=== PATIENT | female | born 1965 | race Caucasian/White ===

== ENCOUNTER 2017-01-16 16:06 | Emergency (ER) | payer OTHER ==
[2017-01-16 16:19] VITALS: BP 143/91
[2017-01-16] MEDS ORDERED: Tetan/Diph/Pertus SYR(Tdap)* 0.5 ML SYR(BOOSTRIX) use SYR IM ONE (18:45)
--- NOTE | 2017-01-16 21:07 | UC ---
Laceration HPI - HPI Summary HPI Summary: CHOPPING POTATOES AT 1130AM, LACERATED LEFT 5TH FINGER. TETANUS STATUS MORE THAN 10 YEARS AGO. - History Of Current Complaint Chief Complaint: UCLaceration Stated Complaint: FINGER LAC Time Seen by Provider: 01/16/17 18:45 Hx Obtained From: Patient Laceration Location: Finger Mechanism Of Injury: Sharp Trauma Onset/Duration: Lasting Hours Severity: Mild Pain Intensity: 0 Pain Scale Used: 0-10 Numeric Aggravating Factors: Movement Related History: Dominant Hand Right - Allergies/Home Medications Allergies/Adverse Reactions: Allergies Allergy/AdvReac Type Severity Reaction Status Date / Time [place] Blue [facility] Allergy Intermediate respiratory Verified 01/16/17 16:18 [From Seasonale] Ethinyl Estradiol Allergy Intermediate respiratory Verified 01/16/17 16:18 [From Seasonale] Levonorgestrel Allergy Intermediate respiratory Verified 01/16/17 16:18 [From Seasonale] Penicillin G Allergy Intermediate hives/itchi Verified 01/16/17 16:18 ng Azithromycin [From Zithromax] Allergy Mild Hives Verified 01/16/17 16:18 Codeine AdvReac Severe head Verified 01/16/17 16:18 pressure Aspirin AdvReac Abdominal Verified 01/16/17 16:18 Pain Home Medications: Home Medications Cetirizine* [ZyrTEC 10 MG TAB*] 10 mg PO DAILY 01/16/17 [History Confirmed 01/16] Fluticasone NASAL * [Flonase *] 1 spray BOTH NARES DAILY 01/16/17 [History Confirmed 01/16/17] PMH/Surg Hx/FS Hx/Imm Hx Previously Healthy: Yes - Surgical History Surgical History: Yes Surgery Procedure, Year, and Place: laproscopic for ovarian cysts. wisdom teeth - Family History Known Family History: Positive: Hypertension - Social History Occupation: Employed Full-time Lives: With Family Alcohol Use: Occasionally Substance Use Type: None Smoking Status (MU): Never Smoked Tobacco Have You Smoked in the Last Year: No Review of Systems Constitutional: Negative Skin: Other - LACERATION LEFT FIFTH FINGER Eyes: Negative ENT: Negative Respiratory: Negative Cardiovascular: Negative Gastrointestinal: Negative Genitourinary: Negative Motor: Negative Neurovascular: Negative Musculoskeletal: Negative Neurological: Negative Psychological: Negative All Other Systems Reviewed And Are Negative: Yes Physical Exam Triage Information Reviewed: Yes Appearance: Well-Appearing, No Pain Distress, Well-Nourished Vital Signs: Initial Vital Signs Temp 98.3 F 01/16/17 16:14 Pulse 87 01/16/17 16:14 Resp 16 01/16/17 16:14 BP 143/91 01/16/17 16:14 Pulse Ox 100 01/16/17 16:14 Vital Signs Reviewed: Yes Eye Exam: Normal ENT Exam: Normal ENT: Positive: Normal ENT inspection, TMs normal Dental Exam: Normal Neck exam: Normal Respiratory Exam: Normal Respiratory: Positive: Chest non-tender, Lungs clear Cardiovascular Exam: Normal Cardiovascular: Positive: RRR, No Murmur Abdominal Exam: Normal Musculoskeletal Exam: Normal Neurological Exam: Normal Psychological Exam: Normal Skin: Positive: Other - LACERATION LEFT 5TH FINGER Laceration Repair - Laceration Repair 1 Description: Linear Laceration Size After Repair: Length (cm) - 2, Width (mm) - 1, Depth (mm) - 1 Modified For Repair: No Closure Material: Skin Adhesive, SteriStrips Laceration Course/Dx - Differential Dx - Laceration/Wound Differental Diagnoses: Avulsion, Cellulitis, Laceration, Puncture Wound Provider Diagnoses: LACERATION LEFT FIFTH FINGER; TETANUS PROPHYLAXIS Discharge - Discharge Plan Condition: Stable Disposition: HOME Patient Education Materials: Laceration (ED), Skin Adhesive Care (ED), Steristrips (ED) Referrals: Viri Workman MD [Primary Care Provider] -
== END 2017-01-16 20:42 | disposition home or self-care (01) ==
LOC: UCEAST 16:06
DX: S61.217A Laceration without foreign body of left little finger without damage to nail, initial encounter (principal); W26.0XXA Contact with knife, initial encounter; Y93.9 Activity, unspecified; Y92.9 Unspecified place or not applicable; Y99.9 Unspecified external cause status
CPT/HCPCS: 12001; 90715; 99211; G0463

== ENCOUNTER 2018-01-01 14:25 | Emergency (ER) | payer SELFPAY ==
[2018-01-01] MEDS ORDERED: predniSONE TAB* 20 MG PO ONE (14:37)
[2018-01-01] MEDS ORDERED: diPHENhydraMINE PO* 50 MG PO ONE (14:37)
[2018-01-01 14:43] VITALS: BP 192/100
--- NOTE | 2018-01-01 14:49 | UC ---
Skin Complaint HPI - History of Current Complaint Time Seen by Provider: 01/01/18 14:32 Stated Complaint: BEE STING Hx Last Menstrual Period: 4 years ago - Allergy/Home Medications Allergies/Adverse Reactions: Allergies Allergy/AdvReac Type Severity Reaction Status Date / Time [place] [facility] Allergy Intermediate respiratory Verified 01/01/18 14:36 [From Seasonale] MS Ethinyl Estradiol Allergy Intermediate respiratory Verified 01/01/18 14:36 [From Seasonale] MS Levonorgestrel Allergy Intermediate respiratory Verified 01/01/18 14:36 [From Seasonale] MS Penicillin G Allergy Intermediate hives/itchi Verified 01/01/18 14:36 [Penicillin G] ng MS Azithromycin Allergy Mild Hives Verified 01/01/18 14:36 [From Zithromax] MS Codeine AdvReac Severe head Verified 01/01/18 14:36 pressure MS Aspirin [Aspirin] AdvReac Abdominal Verified 01/01/18 14:36 Pain PMH/Surg Hx/FS Hx/Imm Hx - Surgical History Surgical History: Yes Surgery Procedure, Year, and Place: laproscopic for ovarian cysts. wisdom teeth - Family History Known Family History: Positive: Hypertension - Social History Alcohol Use: Occasionally Substance Use Type: None Smoking Status (MU): Never Smoked Tobacco Have You Smoked in the Last Year: No Discharge - Discharge Plan Referrals: Viri Workman MD [Primary Care Provider] -
--- NOTE | 2018-01-01 14:52 | UC ---
Skin Complaint HPI - HPI Summary HPI Summary: Patient is a 52-year-old female who presents here minutes after to yellow jacket stings to her face. Complains of pain and swelling and a burning sensation at the sting sites. No generalized pruritus. No stridor. She has no nausea or vomiting. There is no chest pain or shortness of breath. He has not been stung before. - History of Current Complaint Chief Complaint: EDAllergicReaction Time Seen by Provider: 01/01/18 14:32 Stated Complaint: BEE STING Hx Obtained From: Patient Hx Last Menstrual Period: 4 years ago Onset/Duration: Sudden Onset, Lasting Minutes Skin Exposure Onset/Duration: Minutes Ago Timing: Constant Onset Severity: Moderate Current Severity: Moderate Pain Intensity: 5 Pain Scale Used: 0-10 Numeric Location: Discrete Character: Swelling, Pruritus, Pain, Redness, Raised, Painful Aggravating Factor(s): Touch Alleviating Factor(s): Nothing - Allergy/Home Medications Allergies/Adverse Reactions: Allergies Allergy/AdvReac Type Severity Reaction Status Date / Time [place] [facility] Allergy Intermediate respiratory Verified 01/01/18 15:00 [From Seasonale] aspirin Allergy Abdominal Verified 01/01/18 15:00 Pain azithromycin [From Zithromax] Allergy Hives Verified 01/01/18 15:00 codeine Allergy See Comment Verified 01/01/18 15:00 ethinyl estradiol Allergy Difficulty Verified 01/01/18 15:00 [From Seasonale Breathing contraceptive] levonorgestrel Allergy Difficulty Verified 01/01/18 15:00 [From Seasonale Breathing contraceptive] Penicillins Allergy Hives Verified 01/01/18 15:00 Review of Systems Constitutional: Negative Skin: Negative Eyes: Negative ENT: Negative Respiratory: Negative Cardiovascular: Negative Gastrointestinal: Negative Genitourinary: Negative Motor: Negative Neurovascular: Negative Musculoskeletal: Negative Neurological: Negative Psychological: Negative Is Patient Immunocompromised?: No All Other Systems Reviewed And Are Negative: Yes PMH/Surg Hx/FS Hx/Imm Hx Previously Healthy: Yes - Surgical History Surgical History: Yes Surgery Procedure, Year, and Place: laproscopic for ovarian cysts. wisdom teeth - Family History Known Family History: Positive: Hypertension - Social History Alcohol Use: Occasionally Substance Use Type: None Smoking Status (MU): Never Smoked Tobacco Have You Smoked in the Last Year: No Physical Exam Triage Information Reviewed: Yes Appearance: Well-Appearing, No Pain Distress, Well-Nourished Vital Signs: Initial Vital Signs Temp 98.6 F 01/01/18 14:29 Pulse 106 01/01/18 14:29 Resp 18 01/01/18 14:29 BP 192/100 01/01/18 14:29 Pulse Ox 100 01/01/18 14:29 Vital Signs Reviewed: Yes Eyes: Positive: Conjunctiva Clear ENT: Positive: Hearing grossly normal, Uvula midline. Negative: Nasal congestion, Nasal drainage, Tonsillar swelling, Tonsillar exudate, Muffled voice , Hoarse voice Dental Exam: Normal Neck: Positive: Supple, Nontender Respiratory: Positive: Lungs clear, Normal breath sounds, No respiratory distress Cardiovascular: Positive: RRR, No Murmur Neurological: Positive: Alert, Muscle Tone Normal Psychological Exam: Normal Skin Exam: Other - see image Re-Evaluation - Re-Evaluation First Eval Change: Improved - no new symptoms/decreased redness and swelling Course/Dx - Diagnoses Provider Diagnoses: local reaction to insect stings Discharge - Sign-Out/Discharge Documenting (check all that apply): Discharge/Admit/Transfer - Discharge Plan Condition: Stable Disposition: HOME Prescriptions: predniSONE [Prednisone 20 MG TAB] 60 mg PO DAILY #6 tab Patient Education Materials: Insect Bite or Sting (ED) Referrals: Viri Workman MD [Primary Care Provider] - 3 Days (if not better) Additional Instructions: ice packs benadryl 25 mg 2 pills every 4-6 hours for 3 doses then as needed take the prednisone in AM with breakfast I will be here until 10 PM [facility] CALL FOR ANY QUESTIONS OR CONCERNS [phone] - Billing Disposition and Condition Condition: STABLE Disposition: Home Images Head: 1 - tender/swollen/red 2 - tender/swollen/red
== END 2018-01-01 15:45 | disposition home or self-care (01) ==
LOC: UCEAST 14:25
DX: T63.461A Toxic effect of venom of wasps, accidental (unintentional), initial encounter (principal); Z91.041 Radiographic dye allergy status; Z88.6 Allergy status to analgesic agent; Z88.1 Allergy status to other antibiotic agents; Z88.8 Allergy status to other drugs, medicaments and biological substances; Z88.0 Allergy status to penicillin; Y92.9 Unspecified place or not applicable
CPT/HCPCS: 99212; A9270-GY; G0463; J7512